=== PATIENT | female | born 1960 | race Caucasian/White ===

== ENCOUNTER 2019-08-27 14:49 | Inpatient (IN) | payer OTHER ==
--- NOTE | 2019-08-27 15:15 | PDOC ---
Rapid Medical Evaluation Time Seen by Provider: 08/27/19 15:10 Medical Evaluation: 08/27/19 15:10 I have performed a brief in-person evaluation of this patient. The patient presents with a chief complaint of: swelling to lips x 2 hours, patient reports accidentally drank clorox but did not ingest. patient states she takes HTN meds but cannot say which Pertinent physical exam findings: angioedema to lips/tongue, no resp distress in triage I have ordered the following: labs, IV, methlypred, benadryl - defer epi to ED provider The patient will proceed to the ED for further evaluation. Discharge Disposition - Diagnosis Angioedema - Discharge Dispostion Condition at time of disposition: Stable - Referrals - Patient Instructions - Post Discharge Activity
[2019-08-27] MEDS ORDERED: methylPREDNISolone NA SUCC 125 MG/2 ML VIAL IVPUSH ONE (15:16)
[2019-08-27] MEDS ORDERED: methylPREDNISolone NA SUCC 125 MG/2 ML VIAL ONE (15:39)
--- NOTE | 2019-08-27 15:47 | PDOC ---
Attending Attestation - Resident Resident Name: Vaughn Camacho - ED Attending Attestation I have performed the following: I have examined & evaluated the patient, The case was reviewed & discussed with the resident, I agree w/resident's findings & plan - HPI HPI: 08/27/19 15:41 58y/o F HTN p/w oral swelling/irritation after accidental clorox exposure. Pt was taking her BP meds, there was a [employer] bottle with clorox in it, but she accidentally drank from it thinking it was regular water. Immediately spit out the clorox, but over the last 3h has had progressive irritation and swelling of her lips and tongue. No difficulty swallowing/breathing, no pharyngeal swelling. She did not swallow any of the clorox, no GI irritation. no known allergies, no h/o angioedema. - Physicial Exam PE: 08/27/19 15:47 vss, bp slightly elevated (spit out her bp meds) alert, breathing comfortably, speaking full sentences + upper/lower lip and tongue irritation and swelling, posterior pharynx otherwise clear without lesion/edema, no stridor. no rash, heart regular, lungs clear without wheeze - Critical Care Time Total Critical Care Time: 45 Critical Care Statement: The care of this patient involved high complexity decision making to prevent further life threatening deterioration of the patient 's condition and/or to evaluate & treat vital organ system(s) failure or risk of failure. - Medical Decision Making 08/27/19 15:48 58-year-old female with accidental Clorox exposure, presenting with oropharyngeal swelling likely more related to contact mucositis and angioedema/ allergic reaction. No respiratory or systemic symptoms, hemodynamically stable , airway patent at this time. Started empirically on Benadryl and steroids Will irrigate oropharynx Discussed with Poison Control Center given alkaline mucosal exposure Will need observation, close monitoring for airway compromise
--- NOTE | 2019-08-27 16:11 | PDOC ---
History of Present Illness - General Chief Complaint: Ingestion Stated Complaint: LIPS INJURY/CHEMICAL Time Seen by Provider: 08/27/19 15:10 - History of Present Illness Initial Comments: 08/27/19 16:07 58 yo F PMH HTN, p/w lip and tongue swelling/irritation after accidental Clorox exposure. States that she was taking her BP meds and drank from a [employer] bottle, however there was Clorox in it. Reports that she immediately spit it out and specifically denies swallowing any of it. However, patient has experienced worsening irritation, swelling, and pain of her lips and tongue over the past 3 hours since ingestion. Specifically denies any difficulty breathing or swallowing. Further denies any CP, SOB, N/V. Past History - Past Medical History Allergies/Adverse Reactions: Allergies Allergy/AdvReac Type Severity Reaction Status Date / Time No Known Allergies Allergy Verified 08/27/19 15:15 Home Medications: Ambulatory Orders Ramipril 10 mg PO DAILY 08/27/19 COPD: No HTN: Yes - Immunization History Immunization Up to Date: No - Psycho Social/Smoking Cessation Hx Smoking History: Never smoked Have you smoked in the past 12 months: No Information on smoking cessation initiated: No Hx Alcohol Use: No Drug/Substance Use Hx: No Review of Systems - Review of Systems Constitutional: No: Chills, Diaphoresis, Fever HEENTM: Yes: Mouth Pain, Mouth Swelling. No: Throat Pain, Throat Swelling, Difficulty Swallowing Respiratory: No: Cough, Shortness of Breath Cardiac (ROS): No: Chest Pain ABD/GI: No: Constipated, Diarrhea, Nausea, Vomiting : No: Burning, Dysuria, Discharge, Frequency, Flank Pain, Hematuria, Incontinence Musculoskeletal: No: Back Pain, Neck Pain Neurological: No: Headache, Numbness, Tingling, Weakness *Physical Exam - Vital Signs Last Vital Signs Temp Pulse Resp BP Pulse Ox 98.5 F 87 18 173/75 H 98 08/27/19 15:12 08/27/19 15:12 08/27/19 15:12 08/27/19 15:12 08/27/19 15:12 - Physical Exam Comments: 08/27/19 16:10 Gen: well-developed, well-nourished, NAD Neuro: AAOX4, CN II-XII intact, FTN intact, EOMI, PERRLA, 5/5 strength, SILT HEENT: atraumatic, normocephalic, dry mucous membranes Throat: significant edema of lips and tongue with patches of blistering, however , posterior oropharynx entirely without erythema or edema Neck: trachea midline, supple CV: regular rate, regular rhythm, no murmurs, rubs, or gallops Pulm: CTA b/l, no wheezing Abd: soft, non-distended, non-tender MSK: full ROM, intact pulses Extr: no edema, no deformities Skin: warm, dry ED Treatment Course - LABORATORY CBC & Chemistry Diagram: 08/27/19 15:51 08/27/19 15:51 - Medications Given in the ED: ED Medications Discontinued Medications Generic Name Dose Route Start Last Admin Trade Name Santiq PRN Reason Stop Dose Admin Diphenhydramine HCl 50 mg 08/27/19 15:20 08/27/19 15:53 Benadryl Injection - IVPUSH 08/27/19 15:21 50 mg ONCE ONE Administration Methylprednisolone Sodium Succinate 125 mg 08/27/19 15:16 08/27/19 15:53 Solu-Medrol - IVPUSH 08/27/19 15:17 125 mg ONCE ONE Administration Medical Decision Making - Medical Decision Making 08/27/19 15:49 Concern for mucositis 2/2 noxious exposure v angioedema v allergic reaction. Most likely mucositis. - CBC, CMP - IV benadryl and methylprednisolone - reassess 08/27/19 16:11 Patient reassessed, feeling significantly improved after diphenhydramine and steroids. Edema and irritation improved. 08/27/19 16:44 Spoke with Poison Control Center, states that danger symptoms include stridor, excessive drooling, dysphagia. Typically, if patient has not developed any of these 4 hours after exposure, they tend to be cleared from a tox perspective and it becomes about medical management of swelling and pain. 08/27/19 17:27 CBC CMP wnl. 08/27/19 17:30 Will admit patient for Med/Surg obs to ensure swelling improves. Discharge - Discharge Information Problems reviewed: Yes Clinical Impression/Diagnosis: Angioedema, Lip swelling, Tongue swelling Condition: Stable - Follow up/Referral - Patient Discharge Instructions - Post Discharge Activity
[2019-08-27 16:13] LABS: BASO % 0.6 % (0-2.0); EOS % 0.4 % (0-4.5); HEMATOCRIT 42.5 % (32.4-45.2); HEMOGLOBIN 14.1 GM/dL (10.7-15.3); LYMPH % 20.1 % (8-40); MCH 31.3 pg (25.7-33.7); MCHC 33.1 g/dl (32.0-36.0); MEAN CELL VOLUME 94.6 fl (80-96); MEAN PLT VOLUME 7.7 fl (7.5-11.1); MONO % 6.2 % (3.8-10.2); NEUT % 72.7 % (42.8-82.8); PLATELET COUNT 299 K/MM3 (134-434); RBC 4.49 M/mm3 (3.60-5.2); RDW 13.7 % (11.6-15.6); WHITE BLOOD COUNT 5.9 K/mm3 (4.0-10.0)
[2019-08-27 16:37] LABS: ALBUMIN 4.1 g/dl (3.4-5.0); BILIRUBIN,TOTAL 0.3 mg/dL (0.2-1); BLOOD UREA NITROGEN 12.8 mg/dL (7-18); CALCIUM 9.6 mg/dL (8.5-10.1); CREATININE 0.8 mg/dL (0.55-1.3); POTASSIUM 4.3 mmol/L (3.5-5.1); TOT PROT 8.5 g/dl (6.4-8.2)
[2019-08-27 18:59] VITALS: BMI 26.8
[2019-08-27] MEDS ORDERED: MORPHINE SULFATE 2 MG/ML VIAL IVPUSH PRN (19:09)
[2019-08-27] MEDS ORDERED: PIPERACILLIN/TAZOB 3.375 GM 3.375 GM in DEXTROSE 5%-WATER - 50 ML IVPB ONE (19:19)
--- NOTE | 2019-08-27 19:21 | HP ---
CHIEF COMPLAINT: I drank bleach PCP Dr. Rodriguez Thank you for allowing [facility] to take part in the ongoing care of your patient. Patient is a 58-year-old female who accidentally consumed bleach. She states this was not a suicide attempt, just got her lips that she excellently drank out of a bottle. She is found to be afebrile and he dynamically stable and has no issues swallowing. She has no odynophagia noted. She does have some swelling in the mild to moderate caustic appearing injuries on the interior of her mouth and tongue. No apparent issues at the oropharynx. The emergency room physician communicated to me that she did discuss the case with poison control and that they stated that as patient did not swallow and had no GI symptoms that there was not much to do from a toxicology standpoint. ENT was consulted, ID was consulted to see if prophylactic antibiotics should be given, I discussed the case with Dr. Artis, and the patient will be admitted to the hospital for further treatment and monitoring. Due to the nature of her injuries and her propensity for decompensation as well as the severity of potential for esophageal injury given the associated consumption, the patient absolutely requires inpatient monitoring and stay. 10 system review of systems was completed and is negative aside from history of present illness Past medical history is noted and as per chart, denies any new conditions. Past surgical history is unchanged from prior encounters, she denies any recent procedures. No ENT procedures. Social history Patient denies any history of alcohol, tobacco, or drug abuse. No IV drug use. Denies suicidal ideation. Allergies No Known Allergies Allergy (Verified 08/27/19 15:15) HOME MEDICATIONS: Home Medications Medication Instructions Recorded Ramipril 10 mg PO DAILY 08/27/19 PHYSICAL EXAMINATION Vital Signs - 24 hr 08/27/19 08/27/19 08/27/19 15:12 16:09 17:38 Temperature 98.5 F Pulse Rate 87 Pulse Rate [ 89 Radial] Respiratory 18 18 Rate Blood Pressure 173/75 H Blood Pressure 152/81 [Left Arm] O2 Sat by Pulse 98 98 100 Oximetry (%) 08/27/19 08/27/19 08/27/19 17:53 18:00 18:07 Temperature 98.3 F Pulse Rate Pulse Rate [ 87 Radial] Respiratory 13 Rate Blood Pressure Blood Pressure 145/84 [Left Arm] O2 Sat by Pulse 98 96 97 Oximetry (%) 08/27/19 18:54 Temperature 98.1 F Pulse Rate 92 H Pulse Rate [ Radial] Respiratory 20 Rate Blood Pressure 171/97 H Blood Pressure [Left Arm] O2 Sat by Pulse Oximetry (%) VS, labs, imaging reviewed NAD, AAO, resting comfortably in bed. RRR s1/2 no mgr Normal muscle tone, moves all 5 extremities with normal apparent strength Neck is supple, trachea midline, no ki LN Lungs CTAB with sym expansion NT ND +BS no ki organomegaly CN2-12 wnl; no FND NC AT EOMI PERRLA Normal mood, appropriate behavior, euthymic affect No skin breakdown or rashes noted outside of mouth; oral exam with caustic appearing landry, no apparent infection or purulent drainage, no tracking of the issue caustic area into the oropharynx. Laboratory Results - last 24 hr 08/27/19 08/27/19 15:51 15:51 WBC 5.9 RBC 4.49 Hgb 14.1 Hct 42.5 MCV 94.6 MCH 31.3 MCHC 33.1 RDW 13.7 Plt Count 299 MPV 7.7 Absolute Neuts (auto) 4.3 Neutrophils % 72.7 Lymphocytes % 20.1 Monocytes % 6.2 Eosinophils % 0.4 Basophils % 0.6 Nucleated RBC % 0 Sodium 141 Potassium 4.3 Chloride 104 Carbon Dioxide 29 Anion Gap 8 BUN 12.8 Creatinine 0.8 Est GFR (CKD-EPI)AfAm 92.87 Est GFR (CKD-EPI)NonAf 80.13 Random Glucose 88 Calcium 9.6 Total Bilirubin 0.3 AST 16 ALT 22 Alkaline Phosphatase 81 Total Protein 8.5 H Albumin 4.1 ASSESSMENT/PLAN: Overall, the patient is a 58-year-old female who presents after accidental consumption of bleach. She denies intent, and states that she is not suicidal. She has having no symptoms in terms of GI tract regarding abdominal pain, odynophagia, or dysphagia. Pending GI consult. She is n.p.o. and on IV Protonix, we are pending FOBT, we are pending CT abdomen pelvis and chest to see if there is any inflammation or signs that she had any reaction from the consumption. I have signed out to the night team to follow-up on these images. I will also be covering overnight so I will be able to ensure that there is adequate coverage provided. Patient overall is he dynamically stable and afebrile and does not require ICU level of care but can decompensate and we will have a low threshold to transfer if there is any noted injuries. Overall I spent 60 minutes in the ongoing care of this patient including coordination with consults and extensive discussion. Patient is full code. We will hold her antihypertensives and monitor her blood pressure. Can use IV agents. Strict n.p.o. Visit type - Emergency Visit Emergency Visit: Yes ED Registration Date: 08/27/19 Care time: The patient presented to the Emergency Department on the above date and was hospitalized for further evaluation of their emergent condition. - New Patient This patient is new to me today: Yes Date on this admission: 08/28/19 - Critical Care Critical Care patient: No
[2019-08-27] MEDS ORDERED: DEXTROSE 5%-WATER - 50 ML IVPB ONE (21:18)
[2019-08-27] MEDS ORDERED: PIPERACILLIN/TAZOBACTAM 3.375 GM VIAL IVPB ONE (21:18)
[2019-08-27] MEDS: LACTATED RINGERS SOLUTION 1,000 ML/1,000 ML INFUS.BAG IV SCH (21:53)
[2019-08-27] MEDS: PANTOPRAZOLE SODIUM 40 MG VIAL IVPUSH SCH (21:54)
[2019-08-27 22:26] LABS: INR 1.1 (0.83-1.09)
[2019-08-28 08:26] LABS: HEMATOCRIT 39.9 % (32.4-45.2); HEMOGLOBIN 13.7 GM/dL (10.7-15.3); MCH 31.9 pg (25.7-33.7); MCHC 34.2 g/dl (32.0-36.0); MEAN CELL VOLUME 93.2 fl (80-96); MEAN PLT VOLUME 7.7 fl (7.5-11.1); PLATELET COUNT 297 K/MM3 (134-434); RBC 4.28 M/mm3 (3.60-5.2); RDW 13.4 % (11.6-15.6); WHITE BLOOD COUNT 7.8 K/mm3 (4.0-10.0)
--- NOTE | 2019-08-28 08:27 | CON.GI ---
Consult Consult Specialty:: GI Referred by:: Dr Joselito Smith Reason for Consultation:: Bleach Ingestion - History of Present Illness Chief Complaint: Bleach Ingestion History of Present Illness: I was consulted to evaluate patient for accidental ingestion of bleach yesterday. Patient states she was taking her medication yesterday when she grabbed a glass that she thought was water. After patient realized that it was bleach she washed her mouth out with water. Patient currently denies nausea, vomiting, throat pain, abdominal pain, diarrhea, rectal bleeding or melena. - History Source Limitations to Obtaining History: No Limitations - Past Medical History Cardio/Vascular: Yes: HTN - Alcohol/Substance Use Hx Alcohol Use: No - Smoking History Smoking history: Never smoked Have you smoked in the past 12 months: No - Social History ADL: Independent History of Recent Travel: No Home Medications - Allergies Allergies/Adverse Reactions: Allergies Allergy/AdvReac Type Severity Reaction Status Date / Time No Known Allergies Allergy Verified 08/27/19 15:15 - Home Medications Home Medications: Ambulatory Orders Ramipril 10 mg PO DAILY 08/27/19 Review of Systems - Review of Systems Constitutional: reports: No Symptoms Eyes: reports: No Symptoms HENT: reports: No Symptoms Neck: reports: No Symptoms Cardiovascular: reports: No Symptoms Respiratory: reports: No Symptoms Gastrointestinal: reports: No Symptoms Genitourinary: reports: No Symptoms Breasts: reports: No Symptoms Reported Musculoskeletal: reports: No Symptoms Integumentary: reports: No Symptoms Neurological: reports: No Symptoms Endocrine: reports: No Symptoms Hematology/Lymphatic: reports: No Symptoms Psychiatric: reports: No Symptoms Physical Exam-GI Vital Signs: Vital Signs Temperature 98.0 F 08/28/19 05:55 Pulse Rate 79 08/28/19 05:55 Respiratory Rate 20 08/28/19 05:55 Blood Pressure 159/95 08/28/19 05:55 O2 Sat by Pulse Oximetry (%) 97 08/27/19 21:00 Constitutional: Yes: No Distress, Calm Eyes: Yes: Conjunctiva Clear HENT: Yes: Atraumatic Cardiovascular: Yes: Regular Rate and Rhythm Respiratory: Yes: Regular, CTA Bilaterally Gastrointestinal Inspection: Yes: WNL. No: Ascites, Distention, Hernia, Scars, Other ...Auscultate: Yes: Normoactive Bowel Sounds. No: Hyperactive Bowel Sounds, Hypoactive Bowel Sounds, No Bowel Sounds, Other ...Palpate: Yes: Soft. No: Firm/Rigid, Guarding, Hepatomegaly, Mass, Pulsatile Mass, Splenomegaly, Tenderness, Tenderness, Epigastium, Tenderness, Rebound, Other ...Percussion: Yes: Tympanitic. No: Dullness, Fluid Wave, Other Neurological: Yes: Alert, Oriented Psychiatric: Yes: Alert, Oriented Labs: INR, PTT INR 1.10 (0.83-1.09) H 08/27/19 21:00 Home Medication List Medication Instructions Recorded Confirmed Type Ramipril 10 mg PO DAILY 08/27/19 08/27/19 History Active Medications Generic Name Dose Route Start Last Admin Trade Name Freq PRN Reason Stop Dose Admin Diphenhydramine HCl 12.5 mg 08/27/19 19:05 Benadryl Injection - IVPUSH Q4H PRN FOR ITCHING Lactated Ringer's 1,000 ml in 1,000 mls @ 75 mls/hr 08/27/19 19:15 08/27/19 21:53 Lactated Ringers Solution IV 75 mls/hr ASDIR GEMA Administration Morphine Sulfate 2 mg 08/27/19 19:09 Morphine Sulfate IVPUSH Q4H PRN PAIN LEVEL 6-10 Pantoprazole Sodium 40 mg 08/27/19 22:00 08/27/19 21:54 Protonix Iv IVPUSH 40 mg BID GEMA Administration Problem List - Problems (1) Tongue swelling Assessment/Plan: >secondary to bleach ingestion >currently resolved >patient will need to follow up as outpatient for EGD Code(s): R22.0 - LOCALIZED SWELLING, MASS AND LUMP, HEAD
[2019-08-28 09:02] LABS: BLOOD UREA NITROGEN 11.7 mg/dL (7-18); CALCIUM 9.5 mg/dL (8.5-10.1); CREATININE 0.6 mg/dL (0.55-1.3); MAGNESIUM 2.3 mg/dL (1.8-2.4); POTASSIUM 4.7 mmol/L (3.5-5.1)
[2019-08-28] MEDS: PANTOPRAZOLE SODIUM 40 MG VIAL IVPUSH SCH ×2 (09:14→21:37)
--- NOTE | 2019-08-28 12:46 | CONSULT ---
Consult - text type - Consultation Consultation Note: ENT consult 58 yo woman accidentally drank bleach yesterday, developing swelling of her lips and tongue. Spat it out immediately. Denies swallowing it. Improving on medical management. No throat c/o, no dyspnea or dysphagia. P/WD WN HF laying comfortably in bed, in NAD Lips normal OC/OP normal except scattered minimal tongue erythema Imp: caustic ingestion, limited to the lips/mouth, with minimal visible sequelae Recommend continue medical management No need for ENT intervention at this time reconsult if worsens
--- NOTE | 2019-08-28 13:14 | CON.ID ---
Consult Consult Specialty:: infectious diseases Referred by:: Reason for Consultation:: aspiration - History of Present Illness Chief Complaint: swelling of lips History of Present Illness: 58 yo woman accidentally drank bleach yesterday, developing swelling of her lips and tongue. Spat it out immediately. Denies swallowing it. Improving on medical management. No throat c/o, no dyspnea or dysphagia. Patient states she was taking her medication yesterday when she grabbed a glass that she thought was water. After patient realized that it was bleach she washed her mouth out with water. Patient currently denies nausea, vomiting, throat pain, abdominal pain, diarrhea, rectal bleeding or melena. - History Source History Provided By: Patient, Medical Record Limitations to Obtaining History: No Limitations - Past Medical History Cardio/Vascular: Yes: HTN - Alcohol/Substance Use Hx Alcohol Use: No - Smoking History Smoking history: Never smoked Have you smoked in the past 12 months: No - Social History ADL: Independent History of Recent Travel: No Home Medications - Allergies Allergies/Adverse Reactions: Allergies Allergy/AdvReac Type Severity Reaction Status Date / Time No Known Allergies Allergy Verified 08/27/19 15:15 - Home Medications Home Medications: Ambulatory Orders Ramipril 10 mg PO DAILY 08/27/19 Review of Systems - Review of Systems Constitutional: reports: No Symptoms Eyes: reports: No Symptoms HENT: reports: Other (swelling of the lips) Neck: reports: No Symptoms Cardiovascular: reports: No Symptoms Respiratory: reports: No Symptoms Gastrointestinal: reports: No Symptoms Genitourinary: reports: No Symptoms Musculoskeletal: reports: No Symptoms Integumentary: reports: No Symptoms Neurological: reports: No Symptoms Endocrine: reports: No Symptoms Hematology/Lymphatic: reports: No Symptoms Psychiatric: reports: No Symptoms Physical Exam Vital Signs: Vital Signs Temperature 98 F 08/28/19 10:37 Pulse Rate 90 08/28/19 10:37 Respiratory Rate 20 08/28/19 10:37 Blood Pressure 159/76 08/28/19 10:37 O2 Sat by Pulse Oximetry (%) 97 08/28/19 09:00 Constitutional: Yes: Well Nourished, No Distress, Calm Neck: Yes: Supple, Trachea Midline Cardiovascular: Yes: Regular Rate and Rhythm Respiratory: Yes: Regular, CTA Bilaterally Gastrointestinal: Yes: Normal Bowel Sounds, Soft Musculoskeletal: Yes: WNL Extremities: Yes: WNL Neurological: Yes: Alert, Oriented Psychiatric: Yes: Alert, Oriented Labs: CBC, BMP 08/28/19 06:25 08/28/19 06:25 Imaging - Results Chest X-ray: Image Reviewed Cat Scan: Report Reviewed, Image Reviewed Assessment/Plan this patient coming in with accidental ingestion of bleach according to her she did spit it out immediately at the moment she is not having any symptoms of pneumonia or resp issues i am going to not initiate any abx and watch closely
--- NOTE | 2019-08-28 17:08 | PN ---
Progress Note, Physician Chief Complaint: Angioedema History of Present Illness: Previous notes and events reviewed awake and alert NAD denies throat pain no edema noted to lips/tongue - Current Medication List Current Medications: Active Medications Diphenhydramine HCl (Benadryl Injection -) 12.5 mg IVPUSH Q4H PRN PRN Reason: FOR ITCHING Lactated Ringer's (Lactated Ringers Solution) 1,000 ml in 1,000 mls @ 75 mls/ hr IV ASDIR [facility] Last Admin: 08/27/19 21:53 Dose: 75 mls/hr Morphine Sulfate (Morphine Sulfate) 2 mg IVPUSH Q4H PRN PRN Reason: PAIN LEVEL 6-10 Pantoprazole Sodium (Protonix Iv) 40 mg IVPUSH BID [facility] Last Admin: 08/28/19 09:14 Dose: 40 mg - Objective Vital Signs: Vital Signs Temperature 98 F 08/28/19 10:37 Pulse Rate 90 08/28/19 10:37 Respiratory Rate 20 08/28/19 10:37 Blood Pressure 159/76 08/28/19 10:37 O2 Sat by Pulse Oximetry (%) 97 08/28/19 09:00 Constitutional: Yes: No Distress, Calm Eyes: Yes: Conjunctiva Clear HENT: Yes: Atraumatic Cardiovascular: Yes: Regular Rate and Rhythm Respiratory: Yes: Regular, CTA Bilaterally Gastrointestinal: Yes: Normal Bowel Sounds, Soft Musculoskeletal: Yes: WNL Extremities: Yes: WNL Edema: No Neurological: Yes: Alert, Oriented Psychiatric: Yes: Alert, Oriented Labs: CBC, BMP 08/28/19 06:25 08/28/19 06:25 INR, PTT INR 1.10 (0.83-1.09) H 08/27/19 21:00 Problem List - Problems (1) Angioedema Assessment/Plan: -ID and ENT on board Code(s): T78.3XXA - ANGIONEUROTIC EDEMA, INITIAL ENCOUNTER (2) HTN (hypertension) Assessment/Plan: -Ramipril -low Na diet Code(s): I10 - ESSENTIAL (PRIMARY) HYPERTENSION (3) Ingestion of caustic substance Assessment/Plan: -GI on board -will need EGD as outpatient Code(s): T54.91XA - TOXIC EFFECT OF UNSP CORROSIVE SUBSTANCE, ACCIDENTAL, INIT Assessment/Plan see problem list dvt ppx
[2019-08-28] MEDS: RAMIPRIL 5 MG CAPSULE (FP) PO SCH (17:37)
[2019-08-29] MEDS: LACTATED RINGERS SOLUTION 1,000 ML/1,000 ML INFUS.BAG IV SCH (07:13)
[2019-08-29 09:01] VITALS: BP 142/73; PULSE 88; TEMP 97.6
[2019-08-29] MEDS: PANTOPRAZOLE SODIUM 40 MG VIAL IVPUSH SCH (09:42)
[2019-08-29] MEDS: RAMIPRIL 5 MG CAPSULE (FP) PO SCH (09:42)
--- NOTE | 2019-08-29 10:34 | DS ---
Physical Examination Vital Signs: Vital Signs Temperature 97.6 F 08/29/19 09:00 Pulse Rate 88 08/29/19 09:00 Respiratory Rate 18 08/29/19 09:00 Blood Pressure 142/73 08/29/19 09:00 O2 Sat by Pulse Oximetry (%) 94 L 08/29/19 09:00 HENT: Yes: WNL Cardiovascular: Yes: Regular Rate and Rhythm Respiratory: Yes: Regular, CTA Bilaterally Labs: CBC, BMP 08/28/19 06:25 08/28/19 06:25 Discharge Summary Problems reviewed: Yes Reason For Visit: LIP SWELLING TONGUE SWELLING Current Active Problems Angioedema (Acute) HTN (hypertension) (Acute) Ingestion of caustic substance (Acute) Lip swelling (Acute) Tongue swelling (Acute) Hospital Course: - Problems (1) Angioedema Assessment/Plan: -ID and ENT on board -swallowing m=no issues reported Code(s): T78.3XXA - ANGIONEUROTIC EDEMA, INITIAL ENCOUNTER (2) HTN (hypertension) Assessment/Plan: -Ramipril -low Na diet Code(s): I10 - ESSENTIAL (PRIMARY) HYPERTENSION (3) Ingestion of caustic substance Assessment/Plan: -GI on board -will need EGD as outpatient Code(s): T54.91XA - TOXIC EFFECT OF UNSP CORROSIVE SUBSTANCE, ACCIDENTAL, INIT Condition: Stable - Instructions Referrals: Stuart Rodriguez MD [Staff Physician] - 1 Week Disposition: HOME - Home Medications Comprehensive Discharge Medication List: Ambulatory Orders Ramipril 10 mg PO DAILY 08/27/19 Pantoprazole Sodium [Protonix -] 40 mg PO DAILY #30 tablet.ec 08/29/19
--- NOTE | 2019-08-29 10:47 | PN ---
Progress Note, Physician History of Present Illness: stable no new issues no complaints - Current Medication List Current Medications: Active Medications Diphenhydramine HCl (Benadryl Injection -) 12.5 mg IVPUSH Q4H PRN PRN Reason: FOR ITCHING Lactated Ringer's (Lactated Ringers Solution) 1,000 ml in 1,000 mls @ 75 mls/ hr IV ASDIR [facility] Last Admin: 08/29/19 07:13 Dose: 75 mls/hr Morphine Sulfate (Morphine Sulfate) 2 mg IVPUSH Q4H PRN PRN Reason: PAIN LEVEL 6-10 Pantoprazole Sodium (Protonix Iv) 40 mg IVPUSH BID [facility] Last Admin: 08/29/19 09:42 Dose: 40 mg Ramipril (Altace -) 10 mg PO DAILY [facility] Last Admin: 08/29/19 09:42 Dose: 10 mg - Objective Vital Signs: Vital Signs Temperature 97.6 F 08/29/19 09:00 Pulse Rate 88 08/29/19 09:00 Respiratory Rate 18 08/29/19 09:00 Blood Pressure 142/73 08/29/19 09:00 O2 Sat by Pulse Oximetry (%) 94 L 08/29/19 09:00 Constitutional: Yes: No Distress, Calm Cardiovascular: Yes: S1, S2 Respiratory: Yes: Regular, CTA Bilaterally Gastrointestinal: Yes: Normal Bowel Sounds, Soft Musculoskeletal: Yes: WNL Extremities: Yes: WNL Neurological: Yes: Alert, Oriented Psychiatric: Yes: Alert, Oriented Labs: CBC, BMP 08/28/19 06:25 08/28/19 06:25 INR, PTT INR 1.10 (0.83-1.09) H 08/27/19 21:00 Assessment/Plan plan continue current mgmt rest as per the team patient doing well
== END 2019-08-29 13:35 | disposition home or self-care (01) | DRG 816 ==
LOC: JER 14:49 → JERBED 17:31 → J6S 18:41 → OBSVTOIN 19:10
PROVIDERS: ADMIT Internal Medicine; ATTEND Family Medicine
DX: T54.91XA Toxic effect of unspecified corrosive substance, accidental (unintentional), initial encounter (principal); T78.3XXA Angioneurotic edema, initial encounter; I10 Essential (primary) hypertension
CPT/HCPCS: 36415; 71045-TC-FY; 71260-TC; 74177-TC; 80048; 80053; 83735; 85025; 85027; 85610; 85651; 87040; 99285-25; G0378; Q9967

== ENCOUNTER 2019-12-05 09:49 | Emergency (ER) | payer OTHER ==
[2019-12-05 09:59] VITALS: BMI 27.3
--- NOTE | 2019-12-05 10:33 | PDOC ---
History of Present Illness - General Chief Complaint: Pain, Acute Stated Complaint: ABD PAIN / DIZZYNESS Time Seen by Provider: 12/05/19 10:14 History Source: Patient, Advertising Editor Used ([employer]mer# [id number]) Exam Limitations: Language Barrier - History of Present Illness Initial Comments: HPI: 59 y/o female presenting to [facility] ER complaining of two days of vomiting with "painful acid" sensation in throat. Also complaining of dizziness that is worse when changing positions and turning head from side to side. [place] out of balance when walking to the bathroom. Denies fevers, chills, blurry vision, ear ache, abdominal pain, chest pain, shortness of breath. [place] similar sensation last year but did not seek medical attention. Was evaluated by Dr. Artis in September and diagnosed with h. Pylori. Placed on antibiotics in October. Medical Hx: - HTN Review of Systems: 10 point review of systems completed. All systems negative except as noted above. Physical Examination: Vital signs and nursing notes reviewed. Constitutional- Well-developed, well-nourished adult female in no acute distress or obvious discomfort. Found semi-fowlers on hospital bed. Head- Normocephalic. No obvious external signs of trauma. Eyes- Pupils 3mm and PERRL bilaterally. EOMI. No vertical or horizontal nystagmus. Sclerae white. Conjunctiva moist and not injected. Ears- External auditory canals and tympanic membranes pearly patricia. Hearing grossly intact. Nose- No nasal discharge. Throat- Oral cavity and pharynx normal. No inflammation, swelling, exudate, or lesions. Teeth and gingiva in good general condition. Uvula midline. No tongue deviation. Neck- Supple, trachea is midline. Cardiovascular / Chest- Regular rate and regular rhythm. No murmur, rubs, clicks , or gallops. Peripheral pulses- radial pulses full. No pretibial edema. Respiratory- Breathing unlabored. Equal chest rise and fall. Clear to auscultation bilaterally. No stridor, no wheezing, no rhonchi. Gastrointestinal- abdomen is soft, non-tender, non-distended. No hepatosplenomegaly. No pulsatile masses. No overlying skin lesions or obvious signs of trauma. Neuro- Alert and oriented x4. Moving all four extremities spontaneously. No facial asymmetry. No slurred speech. No focal deficits. No upper or lower extremity drift. Sensation to all four extremities intact. No nuchal rigidity. Normal heel to mckinney and rapid alternating movements. Skin- Warm, dry, and intact. Psych- Affect- appropriate. Mood- normal. Speech was non-labored, non- pressured. MDM: 59 y/o female presenting with dizziness, disequilibrium made worse with positional changes, and vomiting. Afebrile. Vitals unremarkable for hypotension or tachycardia. Physical exam as described above. Head CT unremarkable for acute pathology. No further physical exam findings suggestive for central lesion. Suspect likely peripheral vertigo vs BPPV. Given Meclizine. Suspect nausea and vomiting is secondary to the vertiginous symptoms, but will treat with GI cocktail given the description of acid in mouth. Reviewed CBC and comp. No clinically significant derangement. 05 Dec 2019 13:32 PM Pt reassessed. Armenian interpretation provided by [employer] Editor# [id number]. Pt reports feeling much better. No longer dizzy or nauseated. Able to walk unassisted without difficulty. Discussed physical exam findings and laboratory data with pt. Answered all questions. Provided return precautions. pt expressed verbal understanding and agreement with plan to discharge home with outpatient follow up. Provided copies of todays results. Prescribed PRN Meclizine. Referred pt to neurology clinic. Mainor Looney M.D., PGY2 Emergency Medicine Resident Past History - Past Medical History Allergies/Adverse Reactions: Allergies Allergy/AdvReac Type Severity Reaction Status Date / Time No Known Allergies Allergy Verified 12/05/19 10:20 Home Medications: Ambulatory Orders Ramipril 10 mg PO DAILY 08/27/19 Meclizine HCl [Antivert -] 25 mg PO QID PRN #28 tablet 12/05/19 COPD: No HTN: Yes - Immunization History Immunization Up to Date: No - Psycho Social/Smoking Cessation Hx Smoking History: Never smoked Have you smoked in the past 12 months: No Information on smoking cessation initiated: No Hx Alcohol Use: No Drug/Substance Use Hx: No *Physical Exam - Vital Signs Last Vital Signs Temp Pulse Resp BP Pulse Ox 97.6 F 79 16 175/81 H 99 12/05/19 09:56 12/05/19 09:56 12/05/19 09:56 12/05/19 09:56 12/05/19 09:56 ED Treatment Course - LABORATORY CBC & Chemistry Diagram: 12/05/19 10:47 12/05/19 10:47 Discharge - Discharge Information Problems reviewed: Yes Clinical Impression/Diagnosis: Dizziness Nausea and vomiting Qualifiers: Vomiting type: unspecified Vomiting Intractability: non-intractable Qualified Code(s): R11.2 - Nausea with vomiting, unspecified Condition: Good Disposition: HOME - Admission No - Additional Discharge Information Prescriptions: Meclizine HCl [Antivert -] 25 mg PO QID PRN #28 tablet PRN Reason: Vertigo - Follow up/Referral Referrals: Stuart Rodriguez MD [Primary Care Provider] - Ted Kerr MD [Staff Physician] - - Patient Discharge Instructions Patient Printed Discharge Instructions: DI for Vertigo, DI for Benign Paroxysmal Positional Vertigo Additional Instructions: Usted fue visto hoy por mareos y vmitos. Carreno trabajo de laboratorio y TC de la merle fueron normales. Zainab sntomas se resolvieron despus de recibir un medicamento llamado meclizina. Es probable que tenga algo llamado vrtigo perifrico o vrtigo posicional paroxstico chapin. He enviado niesha receta de Meclizine a carreno farmacia. Tmelo pavel se indica en el prospecto. No exceda la dosis recomendada. Mervat un seguimiento con carreno mdico de atencin primaria la prxima semana. Deber llamar para hacer niesha antione. El nmero est incluido en taylor paquete. Se adjunta niesha copia de los resultados de hoy a taylor paquete. Llvelo a la antione para que carreno mdico pueda revisarlos. Dany puede hacer un seguimiento con un neurlogo. He introducido niesha referencia para que rosalina al Dr. Kerr. Deber llamar para hacer niesha antione. El nmero est incluido en taylor paquete. Se adjunta niesha copia de los resultados de hoy a taylor paquete. Llvelo a la antione para que carreno mdico pueda revisarlos. Dirjase al departamento de emergencias ms cercano si carreno afeccin empeora o siente que necesita niesha evaluacin de emergencia adicional. You were seen today for dizziness and vomiting. Your lab work and head CT were normal. Your symptoms resolved after receiving a medication called Meclizine. You likely have something called peripheral vertigo or benign paroxysmal positional vertigo. I have sent a prescription for Meclizine to your pharmacy. Take as directed on the package insert. Do not exceed the recommended dosage. Follow up with your primary care doctor in the next week. You will need to call to make an appointment. The number is included in this packet. A copy of today s results are attached to this packet. Take it to the appointment so your doctor can review them. You can also follow up with a neurologist. I have entered a referral for you to see Dr. Kerr. You will need to call to make an appointment. The number is included in this packet. A copy of todays results are attached to this packet. Take it to the appointment so your doctor can review them. Go to the nearest emergency department if your condition worsens or you feel like you need additional emergency evaluation. Print Language: JAPANESE - Post Discharge Activity Work/Back to School Note: Back to Work
[2019-12-05 11:11] LABS: BASO % 0.2 % (0-2.0); EOS % 0.1 % (0-4.5); HEMATOCRIT 42.4 % (32.4-45.2); HEMOGLOBIN 14.1 GM/dL (10.7-15.3); LYMPH % 14.4 % (8-40); MCH 31.2 pg (25.7-33.7); MCHC 33.3 g/dl (32.0-36.0); MEAN CELL VOLUME 93.6 fl (80-96); MEAN PLT VOLUME 7.5 fl (7.5-11.1); MONO % 3.7 % (3.8-10.2); NEUT % 81.6 % (42.8-82.8); PLATELET COUNT 326 K/MM3 (134-434); RBC 4.53 M/mm3 (3.60-5.2); WHITE BLOOD COUNT 5.1 K/mm3 (4.0-10.0)
[2019-12-05] MEDS ORDERED: FAMOTIDINE 20 MG/50 ML IVPB 20 MG/50 ML MG IVPB ONE ×2 (11:14→11:36)
[2019-12-05] MEDS ORDERED: LACTATED RINGERS SOLUTION 1000 ML INFUS.BAG IV ONE (11:15)
[2019-12-05] MEDS ORDERED: MAG HYDROX/AL HYDROX/SIMETH 30 ML UNIT-DOSE CUP PO ONE (11:15)
[2019-12-05] MEDS ORDERED: MAG HYDROX/AL HYDROX/SIMETH 30 ML UNIT-DOSE CUP ONE (11:17)
[2019-12-05 11:29] LABS: ALBUMIN 3.8 g/dl (3.4-5.0); BLOOD UREA NITROGEN 14.6 mg/dL (7-18); CALCIUM 9.9 mg/dL (8.5-10.1); CREATININE 0.6 mg/dL (0.55-1.3); MAGNESIUM 2.2 mg/dL (1.8-2.4); PHOSPHOROUS 3.2 mg/dL (2.5-4.9); POTASSIUM 4.6 mmol/L (3.5-5.1); TOT PROT 8.8 g/dl (6.4-8.2)
[2019-12-05] MEDS ORDERED: ONDANSETRON 4 MG/2 ML VIAL IVPB ONE (12:27)
[2019-12-05] MEDS ORDERED: MECLIZINE HCL 25 MG TABLET (FP) PO ONE (12:27)
--- NOTE | 2019-12-05 12:28 | PDOC ---
Documentation entered by Connie Platt SCRIBE, acting as scribe for Mercy Pizano MD. Mercy Pizano MD: This documentation has been prepared by the Giulia goodman Nirvannie, SCRIBE, under my direction and personally reviewed by me in its entirety. I confirm that the documentation accurately reflects all work, treatment, procedures, and medical decision making performed by me. Attending Attestation - Resident Resident Name: LooneyMainor - ED Attending Attestation I have performed the following: I have examined & evaluated the patient, The case was reviewed & discussed with the resident, I agree w/resident's findings & plan, Exceptions are as noted - HPI HPI: 59 year old female with a significant past medical history of HTN and H. Pylori , who presents to the emergency department with 2 days of vomiting. As per patient, she has been experiencing associated burning acid sensation to the throat with associated dizziness. She describes it as the room spinning or as if she is drunk. She states it feels like she cant get her footing when she is walking. Denies head trauma, SONG, weakness, numbness. - Physicial Exam PE: GENERAL: Awake, alert, and fully oriented, in no acute distress HEAD: No signs of trauma EYES: PERRLA, EOMI, sclera anicteric, conjunctiva clear ENT: Auricles normal inspection, hearing grossly normal, nares patent, oropharynx clear without exudates. Dry mucosa NECK: Normal ROM, supple, no lymphadenopathy, JVD, or masses LUNGS: Breath sounds equal, clear to auscultation bilaterally. No wheezes, and no crackles HEART: Regular rate and rhythm, normal S1 and S2, no murmurs, rubs or gallops ABDOMEN: Soft, normoactive bowel sounds. No guarding, no rebound. No masses. + Mild epigastric tenderness EXTREMITIES: Normal range of motion, no edema. No clubbing or cyanosis. No cords, erythema, or tenderness NEUROLOGICAL: Cranial nerves II through XII grossly intact. Normal speech. Motor and sensation intact. Gait not tested due to vertigo SKIN: Warm, dry, normal turgor, no rashes or lesions noted. - Medical Decision Making Pt with vertiginous symptoms, one prior episode in the fall that was self- limited. No prior CTH for this, will obtain based on age. Will treat with GI cocktail, meclizine, and IV fluids. No signs of acute abdomen. Likely DC if improved.
[2019-12-05] MEDS ORDERED: ONDANSETRON 4 MG/2 ML VIAL ONE (12:31)
[2019-12-05] MEDS ORDERED: MECLIZINE HCL 25 MG TABLET (FP) ONE (12:31)
[2019-12-05 12:42] VITALS: TEMP 98.4
[2019-12-05 13:57] VITALS: BP 154/73; PULSE 76
--- NOTE | 2019-12-06 12:37 | EKG ---
Test Reason : Blood Pressure : / mmHG Vent. Rate : 073 BPM Atrial Rate : 073 BPM P-R Int : 136 ms QRS Dur : 080 ms QT Int : 404 ms P-R-T Axes : 023 019 -02 degrees QTc Int : 445 ms NORMAL SINUS RHYTHM WITH SINUS ARRHYTHMIA NORMAL ECG NO PREVIOUS ECGS AVAILABLE Confirmed by NURIA GUTIERREZ MD ([id number]) on 12/06/2019 12:37:22 PM Referred By: Confirmed By:NURIA GUTIERREZ MD
== END 2019-12-05 13:57 | disposition home or self-care (01) ==
LOC: JER 09:49
PROC: 3E033GC Introduction of Other Therapeutic Substance into Peripheral Vein, Percutaneous Approach (ICD-10-PCS; principal; 2019-12-05)
DX: R42 Dizziness and giddiness (principal)
CPT/HCPCS: 36415; 70450-TC; 80053; 82550; 83690; 83735; 84100; 84484; 85025; 93005; 93010; 96365; 99283-25